=== PATIENT | female | born 1995 | race Caucasian/White ===

== ENCOUNTER 2017-04-02 15:55 | Emergency (ER) | payer OTHER ==
[~2017-04-02] VITALS: Ht 170.2 cm; Wt 92.0 kg
[2017-04-02] MEDS ORDERED: SODIUM CHLORIDE FLUSH 10ML SYR IVF ONE (16:30)
[2017-04-02] MEDS ORDERED: ONDANSETRON 2MG/ML, 2ML IVPush ONE ×2 (16:30→18:00)
[2017-04-02 16:36] LABS: HEMATOCRIT 40.9 % (34.6-47.8); HEMOGLOBIN 13.7 g/dL (11.7-16.4); WHITE BLOOD COUNT 9.1 x10^3/uL (4.5-13.2)
[2017-04-02 16:48] LABS: ASPARTATE AMINO TRANSFERASE 15 U/L (15-37); BLOOD UREA NITROGEN 10 mg/dL (7-18)
[2017-04-02 17:08] LABS: PATH.CAST-FLAG NOT PRESENT; SPERM-FLAG NOT PRESENT; SRC-FLAG NOT PRESENT; XTAL-FLAG NOT PRESENT; YLC-FLAG NOT PRESENT
[2017-04-02 17:51] VITALS: BP 123/72
[2017-04-02] MEDS ORDERED: ONDANSETRON 2MG/ML, 2ML ONE (17:56)
[2017-04-02] MEDS ORDERED: SODIUM CHLORIDE 0.9% 1,000ML IVBOLUS ONE (18:00)
== END 2017-04-02 18:50 | disposition home or self-care (01) ==
LOC: ED 18:19
DX: K92.2 Gastrointestinal hemorrhage, unspecified (principal); R11.0 Nausea
CPT/HCPCS: 36415; 74177; 80053; 81001; 83690; 84703; 85025; 87086; 96361; 96374; 96376; 99285; J2405; J7030

== ENCOUNTER 2017-04-27 14:49 | Emergency (ER) | payer OTHER ==
[~2017-04-27] VITALS: Ht 167.6 cm; Wt 93.3 kg
[2017-04-27 14:54] VITALS: BP 137/91
[2017-04-27] MEDS ORDERED: ONDANSETRON ODT 4 MG ONE (15:26)
[2017-04-27] MEDS ORDERED: HYDROcodone/APAP 5/325 TABLET ONE (15:26)
[2017-04-27] MEDS ORDERED: ONDANSETRON ODT 4 MG PO ONE (15:30)
[2017-04-27] MEDS ORDERED: HYDROcodone/APAP 5/325 TABLET PO ONE (15:30)
[2017-04-27 15:44] LABS: HEMATOCRIT 43.1 % (34.6-47.8); HEMOGLOBIN 14.3 g/dL (11.7-16.4); WHITE BLOOD COUNT 6.9 x10^3/uL (4.5-13.2)
[2017-04-27 15:51] LABS: ASPARTATE AMINO TRANSFERASE 11 U/L (15-37); BLOOD UREA NITROGEN 8 mg/dL (7-18)
[2017-04-27] MEDS ORDERED: MAALOX/HYOSCYAMINE/LIDOCAINE 45 ML BTL ONE (17:17)
[2017-04-27] MEDS ORDERED: MAALOX/HYOSCYAMINE/LIDOCAINE 45 ML BTL PO ONE (17:30)
== END 2017-04-27 17:26 | disposition home or self-care (01) ==
LOC: ED 17:09
DX: R10.32 Left lower quadrant pain (principal); R11.0 Nausea; R19.7 Diarrhea, unspecified
CPT/HCPCS: 36415; 74000; 76830; 80053; 81003; 83690; 84703; 85025; 99285; Q0162